=== PATIENT | male | born 1990 | race Caucasian/White ===

== ENCOUNTER 2019-04-26 13:52 | Emergency (ER) | payer MEDICAID, OTHER ==
[~2019-04-26] VITALS: Ht 165.1 cm; Wt 97.4 kg
[2019-04-26 14:00] VITALS: BP 134/100
== END 2019-04-26 15:24 | disposition home or self-care (01) ==
LOC: ED 14:35
DX: M77.52 Other enthesopathy of left foot and ankle (principal); I10 Essential (primary) hypertension
CPT/HCPCS: 99283